=== PATIENT | female | born 1980 | race Caucasian/White ===

== ENCOUNTER 2017-10-25 10:26 | Emergency (ER) | payer OTHER ==
[2017-10-25] MEDS ORDERED: NS 1,000 ML IV ONE (10:48)
[2017-10-25] MEDS ORDERED: METOCLOPRAMIDE 10 MG/2 ML VIAL IVP ONE (10:48)
[2017-10-25] MEDS ORDERED: DEXAMETHASONE 10 MG/ML VIAL IVP ONE (10:48)
--- NOTE | 2017-10-25 10:48 | EDPHY ---
General - History Smoking Status: Current every day smoker Time Seen by Provider: 10/25/17 10:36 Narrative: CHIEF COMPLAINT: Headache HISTORY OF PRESENT ILLNESS: Patient complains of right-sided headache of nearly 1 week. This started last Monday. It is behind the right eye, into the right neck and head. It is moderate to severe, currently an 8/10. It goes down to 5/10 with ibuprofen and swxc-kbu-sarhxhy medications. No stiffness. No fever. No watery IR runny nose. No trauma or injury. She was in formally evaluated by a co-worker medical provider who suspected possible allergy involvement. She attempted over -the-counter antihistamines with some improvement. She has some dizziness and lightheadedness and painful eye movements. She has no diplopia or visual changes. No previous history of headaches of any kind. This was not a sudden- onset headache. This was not a thunderclap headache. No other associated complaints or modifying factors. REVIEW OF SYSTEMS: Ten systems reviewed and are negative unless otherwise noted in the HPI PCP: Dr. Prabhakar SPECIALISTS: None PAST MEDICAL HISTORY: Uncomplicated PAST SURGICAL HISTORY: No recent surgeries. SOCIAL HISTORY: Daily smoker. Occasional alcohol. No drug use. 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 FAMILY HISTORY: Noncontributory EXAMINATION General Appearance: Alert, no distress Head: normocephalic, atraumatic. No [place] sign. No raccoon eyes. No tenderness over the right temporal bone Eyes: Pupils equal and round, no conjunctival pallor or injection. EOM symmetric. No nystagmus. ENT, Mouth: Mucous membranes moist Neck: Normal inspection, supple, non-tender. No meningeal signs. Palpable spasms in the right trapezius Respiratory: Lungs are clear to auscultation Cardiovascular: Regular rate and rhythm. No murmur Gastrointestinal: Abdomen is soft and nontender Back: non-tender, no bony abnormalities Neurological: GCS 15. A&O, nonfocal, normal gait. Strength is symmetric in all 4 limbs. No pronator drift. Normal rugtqq-ba-lied. Skin: Warm and dry, no rash. No petechiae or purpura Extremities: Nontender, no pedal edema Psychiatric: Mood and affect normal DIFFERENTIAL DIAGNOSES: Including but not limited to tension headache, hemiplegic migraine, atypical migraine, intracranial abnormality, meningitis, temporal cell arteritis MDM: 10:45 a.m. Right hemiplegia headache in a patient with no history of headaches. Not sudden onset. Not thunderclap type headache. Does improve with anti- inflammatories but does not resolved. I have ordered CT scan of the head as this is the 1st onset of headache for her. She will be placed on 2 L nasal cannula of oxygen. I have ordered migraine type medications and will re- evaluate. 12:00 p.m. Laboratory studies are within normal limits, including a negative ESR. I have re-evaluated the patient. Her pain has improved somewhat but still having pain and spasm on the right side of the neck and occiput. I will order Valium. CT scan is pending. 12:30 p.m. Notified by radiologist Dr. Stinson. CT scan of the head reveals a 4 mm, focal area of intraparenchymal hemorrhage in the left frontal lobe. I have notified Dr. Esparza as well. 12:37 p.m. Case discussed with neurosurgery Dr. Wong. CT scan findings discussed. He recommends MRI of the brain without with contrast for further evaluation. I re- evaluated the patient and informed her of this positive finding. She says that she has had some difficulty focusing, has felt somewhat aggravated and reports difficulty concentrating. I perform an NIH stroke scale and it is 0 at this time. 1:02 p.m. Neurosurgery JAYLYN has arrived to evaluate the patient. 2:00 p.m. Patient re-evaluated. She is doing well and pending MRI. Symptoms are improving. 3:20 p.m. Patient has returned from MRI. Official interpretation pending. He is in no acute distress. 3:45 p.m. Case discussed with neurosurgery Dr. Murillo. He has evaluated the patient in the emergency department and reviewed the MRI. He does not appreciate any findings on the MRI. He recommends neuro consultation due to the positional headache. 3:55 p.m. Case discussed with on-call neurologist Dr. Gold. He will review the patient's images and return my phone call. 4:00 p.m. Notified by radiologist. MRI does not reveal any acute abnormality. They do not appreciate any hemorrhage that was suggested by the CT scan. This was reviewed with other radiologist as well and they are in agreement. 4:20 p.m. I discussed the case again with Dr. Gold. He suggest the possibility of new onset migraine that may be related to her blood pressure. He would like us to discharge her with a Medrol Dosepak. I informed him that she has an appointment with a new primary care physician tomorrow. He would like her to see this person as well as to come see him for outpatient follow-up. 4:30 p.m. Patient re-evaluated. I discussed the planned from Neurology. She is comfortable with this. She would like to be discharged home. She will keep her appointment tomorrow with her new primary care physician Dr. Prabhakar. She will return here for any sudden change in headache, neck pain, neck stiffness, fever, nausea, vomiting. I will provide a prescription for Medrol Dosepak. She is discharged home stable condition. SUPERVISION: Patient was independently examined, but I discussed the case with my secondary supervising physician Dr. Esparza and Dr. Baker. (Duglas Guzman) Medical Decision Makin:50 I evaluated this patient at the request of JAYLYN Slaughter. I concur with his evaluation and plan of treatment. (Lucho Esparza) - Objective Vital Signs: Initial Vital Signs Temperature (C) 98.1 F 10/25/17 10:29 Heart Rate 96 10/25/17 10:29 Respiratory Rate 18 10/25/17 10:29 Blood Pressure 143/92 H 10/25/17 10:29 O2 Sat (%) 99 10/25/17 10:29 O2 Delivery Mode Room Air O2 (L/minute) 2 Allergies/Adverse Reactions: Sulfa (Sulfonamide Antibiotics) Allergy (Verified 10/25/17 10:29) Home Medications: Medication Instructions Recorded methylPREDNISolone [Medrol Dose 1 each PO AD #1 ea 10/25/17 Bradley] Laboratory Results: Laboratory Results 10/25/17 10:58 10/25/17 10:58 Medications Given: Discontinued Medications Dexamethasone (Decadron Injection) 10 mg IVP EDNOW ONE Stop: 10/25/17 10:49 Last Admin: 10/25/17 11:16 Dose: 10 mg Diazepam (Valium) 5 mg IVP EDNOW ONE Stop: 10/25/17 12:13 Last Admin: 10/25/17 12:25 Dose: 5 mg Diphenhydramine HCl (Benadryl Injection) 25 mg IVP EDNOW ONE Stop: 10/25/17 10:49 Last Admin: 10/25/17 11:10 Dose: 25 mg Sodium Chloride (Ns) 1,000 mls @ 0 mls/hr IV ONCE ONE; Wide Open PRN Reason: Protocol Stop: 10/25/17 10:49 Last Admin: 10/25/17 11:10 Dose: 1,000 mls Metoclopramide HCl (Reglan Injection) 10 mg IVP EDNOW ONE Stop: 10/25/17 10:49 Last Admin: 10/25/17 11:21 Dose: 10 mg Departure - Departure Disposition: Home, Routine, Self-Care Clinical Impression: Headache Qualifiers: Headache type: unspecified Headache chronicity pattern: acute headache Intractability: not intractable Qualified Code(s): R51 - Headache Condition: Good Instructions: Methylprednisolone (By mouth), Migraine Headache (ED), Acute Headache (DC) Additional Instructions: 1. Medrol Dosepak as prescribed to completion 2. Keep your appointment with your primary care physician tomorrow 3. Contact Dr. Gold for outpatient neurology follow-up 4. Return to emergency department for sudden change in pain, neck pain or stiffness, fever, intractable pain Referrals: Lisette Prabhakar MD [Primary Care Provider] - As per Instructions Irvin Gold MD [Medical Doctor] - As per Instructions Prescriptions: methylPREDNISolone [Medrol Dose Bradley] 1 each PO AD #1 ea
[2017-10-25 11:06] LABS: PLATELET COUNT 291 10^3/uL (150-400)
[2017-10-25] MEDS ORDERED: DIAZEPAM 5 MG/ML 1 ML SYR IVP ONE (12:12)
[2017-10-25 12:56] LABS: INR 0.99 (0.83-1.16); PROTIME(PATIENT) 13.3 SEC (12.0-15.0)
[2017-10-25] MEDS ORDERED: GADOBUTROL 10 ML VIAL IVP ONE (14:19)
--- NOTE | 2017-10-25 14:21 | GCON ---
[f rep st] CONSULTATION NEUROSURGICAL CONSULTATION REASON FOR CONSULTATION: This is an emergency room consultation for headaches. CHIEF COMPLAINT: Headache. 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. Approximately 1 week ago, while she was at work, she developed a jackie rly sudden onset of a generalized headache. This was associated with some dizziness and nausea. Her symptoms were worse with leaning forward, sitting and standing, but were improved with rest and lyin g flat. She has not had any nausea, vomiting or weakness. She tried some ibuprofen with a temporary improvement of her headaches. She also tried some sinus medication and allergy medication with no i mprovement. She did try some Tylenol Migraine, which temporarily relieved her headache. Due to the ongoing effect of her symptoms, she was evaluated in the emergency department today. There, her head CT showed a small left frontoparietal subcortical hemorrhage that measures approximately 4 mm, and n eurosurgical consultation was requested. She currently complains of an ongoing generalized headache. She is not having any new nausea, vomiting, weakness, or paresthesias. PAST MEDICAL HISTORY: None. CURRENT MEDICATIONS: None. ALLERGIES: Sulfa, which caused a rash. FAMILY HISTORY: The patient has no family history of cranial disorders, including aneurysms, tumors, or previous hemorrhages. SOCIAL HISTORY: Patient is single, but does have a child. She smokes approximately a half pack of c igarettes per day for the last 20 years. She does drink alcohol socially. Denies recreational drug use. REVIEW OF SYSTEMS: Negative. PHYSICAL EXAM: GENERAL: Patient is a 37-year-old female, lying in bed in a mild amount of distress. HEAD, EYES, EARS, NOSE, AND THROAT: Negative for drainage. EXTREMITIES: [place], warm and dry. ALY ROLOGICAL: Patient is awake, alert, oriented x4. Pupils equal, round, reactive to light. Extraocul ar motions are intact. There is no evidence of facial droop. Tongue and uvula are midline. Spinal accessory muscles are intact. Her motor strength is 5/5 in her arms and legs. Her sensation is mark sly intact to light touch in her arms and legs. Deep tendon reflexes are 1+/4 in the bilateral bicep s, triceps, brachioradialis, patellar, and Achilles. There is a negative Varma's with no clonus. DIAGNOSTIC STUDIES: A head CT without contrast from [facility] on 10/25/2017 shows a very small left frontal subcortical hemorrhage that measures approximately 4 mm. There is no eviden ce of any extra-axial fluid collections. There is no evidence of hydrocephalus. IMPRESSION: This is a 37-year-old female with a 1-week history of generalized headaches and a small left frontal cortical hemorrhage. She is neurologically stable. PLAN: All the above discussed in detail with the patient. She was seen and examined in emergency ro om [address] Castro present. At this point in time, the hemorrhage is a bit atypical, althou gh it is very small. We will obtain an MRI of the brain to better evaluate for an underlying source of this hemorrhage. We will make further treatment recommendations upon completion of her MRI. /[id number]/MODL
[2017-10-25 16:51] VITALS: BP 123/97
== END 2017-10-25 16:51 | disposition home or self-care (01) ==
DX: R51 Headache (principal); F17.200 Nicotine dependence, unspecified, uncomplicated; E86.9 Volume depletion, unspecified
CPT/HCPCS: 96374; A9585; J1100; J1200; J2765; J3360